=== PATIENT | male | born 1960 | race Caucasian/White ===

== ENCOUNTER 2021-06-16 05:26 | Day surgery (SDC) | payer BC ==
[~2021-06-16] VITALS: Ht 185.4 cm; Wt 84.9 kg
[2021-06-16] MEDS ORDERED: CHLORHEXIDINE 15 ML UDC ONE (06:14)
[2021-06-16 06:28] VITALS: BP 148/91
[2021-06-16] MEDS ORDERED: CHLORHEXIDINE 15 ML UDC PO ONE (06:30)
[2021-06-16] MEDS ORDERED: LACTATED RINGERS 1,000 ML IV SCH (06:30)
[2021-06-16] MEDS ORDERED: PLEASE ENTER HEIGHT AND WEIGHT MC SCH (06:30)
[2021-06-16] MEDS ORDERED: BUPIVACAINE/PF 0.5% ONE (06:38)
[2021-06-16] MEDS ORDERED: LIDOCAINE 1%, 20ML ONE (06:38)
[2021-06-16] MEDS ORDERED: LISI-170 PO (06:41)
[2021-06-16] MEDS ORDERED: METF500T17 PO (06:41)
[2021-06-16] MEDS ORDERED: BISO1TAB91 PO (06:41)
[2021-06-16] MEDS ORDERED: ATOR-2 PO (06:41)
[2021-06-16] MEDS ORDERED: GEMF-31 PO (06:41)
[2021-06-16] MEDS ORDERED: AMOX1TAB64 PO (06:41)
[2021-06-16] MEDS ORDERED: EMPA25TA PO (06:41)
[2021-06-16] MEDS ORDERED: HYDR-3237 PO (06:41)
[2021-06-16] MEDS ORDERED: vit b complex PO (06:41)
[2021-06-16] MEDS ORDERED: FENTANYL PF 100 MCG/2ML ONE ×2 (06:46→08:06)
[2021-06-16] MEDS ORDERED: MIDAZOLAM 1 MG/ML, 2ML ONE (06:46)
[2021-06-16] MEDS ORDERED: VANCOMYCIN 500 MG ONE (07:06)
[2021-06-16] MEDS ORDERED: LIDOCAINE-MPF 2% ,5ML ONE (07:30)
[2021-06-16] MEDS ORDERED: ONDANSETRON 2MG/ML, 2ML ONE (07:36)
[2021-06-16] MEDS ORDERED: DEXAMETHASONE 4 MG/ML, 5ML ONE (07:36)
[2021-06-16] MEDS ORDERED: PROPOFOL 10 MG/ML, 20ML ONE (07:36)
[2021-06-16] MEDS ORDERED: CEFAZOLIN 1,000 MG ONE (07:36)
[2021-06-16] MEDS ORDERED: OXYcodone 5 MG/5 ML ORAL.SOL UDC PO PRN (08:00)
[2021-06-16] MEDS ORDERED: MEPERIDINE/PF 25MG/0.5ML IVPush PRN (08:00)
[2021-06-16] MEDS ORDERED: PROMETHAZINE 25 MG/ML, 1ML IVPush PRN (08:00)
[2021-06-16] MEDS ORDERED: ACETAMINOPHEN 325 MG TABLET PO PRN (08:00)
[2021-06-16] MEDS ORDERED: FENTANYL PF 100 MCG/2ML IV PRN (08:00)
[2021-06-16] MEDS ORDERED: HYDROmorphone 1 MG/ML, 1ML INJ IVPush PRN (08:00)
[2021-06-16] MEDS ORDERED: MIDAZOLAM 1 MG/ML, 2ML IV PRN (08:00)
[2021-06-16] MEDS ORDERED: OXYcodone 5 MG/5 ML ORAL.SOL UDC ONE (08:06)
== END 2021-06-16 09:20 | disposition home or self-care (01) ==
LOC: OUT 05:26
PROVIDERS: ATTEND Orthopaedic Surgery Foot and Ankle Surgery
DX: M21.6X1 Other acquired deformities of right foot (principal); M21.6X2 Other acquired deformities of left foot; E11.69 Type 2 diabetes mellitus with other specified complication; M86.671 Other chronic osteomyelitis, right ankle and foot; I10 Essential (primary) hypertension; E78.5 Hyperlipidemia, unspecified; Z79.899 Other long term (current) drug therapy; Z87.891 Personal history of nicotine dependence
CPT/HCPCS: 27687; 28112; 82962; 87070; 87075; 87077; 87102; 87186; 87205; J0690; J1100; J2250; J2405; J2704; J3010; J3370; J7120; 87106